=== PATIENT | male | born 1995 | race Caucasian/White ===

== ENCOUNTER 2024-02-14 08:51 | Emergency (ER) | payer BC, SELFPAY ==
[2024-02-14 09:34] VITALS: BP 145/84; PULSE 80; RESP 18; TEMP 36.8; O2SAT 95
--- NOTE | 2024-02-14 11:39 | ED_ITS ---
HPI - Skin/Abscess/Foreign Bdy General: Chief complaint: Skin/Abscess/Foreign Body Stated complaint: lump on back Time Seen by Provider: 02/14/24 09:00 Source: patient Mode of arrival: ambulatory Limitations: no limitations History of Present Illness: 29-year-old male states that he has had a pilonidal cyst he states he has had it for years he states that sometimes it becomes painful states that over the last week he has had some drainage from the site and increased pain. He denies any fevers denies any worse improving factors. Associated symptoms: Deny chills, fever(s), nausea or vomiting Related Data Previous Rx's Medication Instructions Recorded sulfamethoxazole 800 1 tab PO BID 10 days #20 tabs 02/14/24 mg-trimethoprim 160 mg tablet (Bactrim DS) Allergies Allergy/AdvReac Type Severity Reaction Status Date / Time No Known Allergies Allergy Verified 02/14/24 09:39 Review of Systems Const: Denies: fever(s), chills, body aches or change in appetite ENMT: Denies: throat pain or dental pain Card: Denies: chest pain Resp: Denies: dyspnea GI: Denies: abdominal pain, nausea, vomiting or diarrhea Musc: Denies: neck pain or back pain Skin/Breast: Denies: rash Neuro: Denies: headache(s) Physical Exam Const: COMMON NORMALS: no acute distress, patient oriented x3 and healthy appearing HENMT: COMMON NORMALS: normocephalic and atraumatic HEAD & SCALP: normocephalic and atraumatic Neck/C-Spine: COMMON NORMALS: full ROM and supple Chest: COMMONS NORMALS: normal inspection of the chest Resp: COMMON NORMALS: normal respiratory effort Cardio: COMMON NORMALS: regular rate, regular rhythm and No murmurs present (Cardio) RATE: regular rate RHYTHM: regular rhythm Back/Pelvis: OTHER: Pilonidal cyst noted to the lower back there is no abscess collection its opened and drainage with mild erythema Extremity: COMMON NORMALS: normal to inspection and full ROM Neuro: COMMON NORMALS: patient oriented x3, moves all extremities and no focal motor deficits Psych: COMMON NORMALS: mental status grossly normal, Normal thought process present and cooperative THOUGHT PROCESS: Normal thought process present Skin: COMMON NORMALS: no rashes or lesions noted and no wounds GENERAL SKIN EXAM: no rashes or lesions noted Course Vital Signs: Vital signs: Vital Signs Temperature 98.2 F 02/14/24 09:34 Pulse Rate 80 02/14/24 09:34 Respiratory Rate 18 02/14/24 09:34 Blood Pressure 145/84 02/14/24 09:34 Pulse Oximetry 95 02/14/24 09:34 Oxygen Delivery Me thod Room Air 02/14/24 09:34 MDM - Skin/Abscess/Foreign Bdy Medicial Decision Making Patient presents for the pilonidal cyst does not need incised and drained at this time we will get him surgery follow-up we will start him on Bactrim he stable for discharge No radiology studies performed this visit Discharge Plan Discharge Patient Disposition: Home Clinical Impression: Pilonidal cyst without abscess Condition: Stable Prescriptions: New Bactrim DS 800-160 mg tablet 1 tab PO BID 10 Days Qty: 20 0RF Discharge Orders: Discharge ED (Routine); Ordered 02/14/24 Ordered By: Hannah Silverman Referrals: Ismael May DO [Physician] - 1-3 days Discharge Diet: Advance as tolerated Discharge Activity: Resume usual activity Patient Instructions: Pilonidal Cyst (ED) Coding Level of Care Code ED Logistics Supply Officer for Juan Carlos Ng
--- NOTE | 2024-02-14 11:48 | DCPLANNER ---
messaged gen surg for er f/u
[2024-02-14] MEDS: HYDROcodone-acetaminophen 5-325 mg Tablet 1 TAB PO (11:51)
[2024-02-14] MEDS: sulfamethoxazole-trimeth DS 160-800 mg Tablet 1 TAB PO (11:51)
[2024-02-14 11:58] VITALS: BP 140/81; PULSE 81; O2SAT 97
== END 2024-02-14 11:59 | disposition home or self-care (01) ==
PROVIDERS: Emergency Provider Emergency Medicine
DX: L05.91 Pilonidal cyst without abscess (principal)
CPT/HCPCS: 99283